=== PATIENT | male | born 1955 | race Caucasian/White ===

== ENCOUNTER 2018-09-24 11:27 | Emergency (ER) | payer BC, OTHER ==
[2018-09-24] MEDS ORDERED: Albuterol/Ipratropium 3.0-0.5 MG/3 ML Neb Soln ONE (11:32)
[2018-09-24] MEDS ORDERED: methylPREDNISolone Sodium Succinate 125 MG/2 ML SDV IVPUSH ONE (11:36)
[2018-09-24] MEDS ORDERED: Sodium Chloride 0.9% 1,000 ML IV ONE ×2 (11:41→12:18)
--- NOTE | 2018-09-24 11:42 | EDM.PDOC ---
<Gui Herring - Last Filed: 09/24/18 12:57> ED HPI GENERAL MEDICAL PROBLEM - General Chief Complaint: Respiratory Problem Stated Complaint: CHEST PAIN,ANXIETY Time Seen by Provider: 09/24/18 11:31 - History of Present Illness INITIAL COMMENTS - FREE TEXT/NARRATIVE: 63 y/o male presenting today with worsening shortness of breath. smokes 1-2 ppd. drinks 4-5 mixed drinks daily. No history of alcohol withdrawal seizures. States that his dyspnea has been going on and off for 1 month but now worse today. No chest pain, radiation to neck or arm. Denies any cardiac, pulmonary history. No medications. In the ER, he was started on Duonebs and placed on NS. Currently O2 sat of 95% on 6 L NC. Still wheezy after Duoneb treatment. - Related Data Allergies Allergy/AdvReac Type Severity Reaction Status Date / Time No Known Allergies Allergy Verified 09/24/18 11:39 Home Meds: Home Meds . [No Known Home Meds] 09/24/18 [History] ED ROS GENERAL - Review of Systems Review Of Systems: ROS reveals no pertinent complaints other than HPI. ED EXAM, GENERAL - Physical Exam Exam: See Below General Appearance: Alert, Anxious Head: Atraumatic Respiratory/Chest: Wheezing, Prolonged Expiration Cardiovascular: Regular Rate, Rhythm, No Edema GI/Abdominal: Normal Bowel Sounds, Soft, Non-Tender Extremities: Normal Inspection, Non-Tender, No Pedal Edema Neurological: Alert, Oriented Skin Exam: Warm, Dry Course - Vital Signs Text/Narrative:: Duonebs X2 with current O2 sats high 90's on 3L NC. Troponin of 0.26. Re-evaluated patient and he denies chest pain. Repeat EKG did not show any significant changes from initial. No ST elevation. Spoke with Dr. Cutler who reviewed EKG and recommended transfer to ER with admission to Medicine. He will be consulted. Administered Lovenox 100 mg IV once. Spoke with Dr. Martin at [facility] in [place] who accepted the patient. Last Recorded V/S: Last Vital Signs Temp 36.7 C 09/24/18 11:35 Pulse 115 H 09/24/18 11:35 Resp 26 H 09/24/18 11:35 BP 212/123 H 09/24/18 11:35 Pulse Ox 69 L 09/24/18 11:35 - Orders/Labs/Meds Orders: Active Orders 24 hr Category Date Time Status EKG Documentation Completion [RC] STAT Care 09/24/18 11:34 Active EKG Documentation Completion [RC] STAT Care 09/24/18 12:28 Active RT Aerosol Therapy [RC] ASDIRECTED Care 09/24/18 11:46 Active Sodium Chloride 0.9% [Normal Saline] 1,000 ml Med 09/24/18 13:15 Active IV ASDIRECTED Sodium Chloride 0.9% [Normal Saline] 1,000 ml Med 09/24/18 12:18 Active IV STAT Medication Orders Sodium Chloride (Normal Saline) 1,000 mls @ 999 mls/hr IV STAT ONE Stop: 09/24/18 13:18 Last Admin: 09/24/18 12:57 Dose: 999 mls/hr Sodium Chloride (Normal Saline) 1,000 mls @ 150 mls/hr IV ASDIRECTED [facility] Labs: Laboratory Tests 09/24/18 09/24/18 09/24/18 Range/Units 11:39 11:39 11:39 WBC 9.53 (4.0-11.0) K/uL RBC 5.73 (4.50-5.90) M/uL Hgb 18.5 H (13.0-17.0) g/dL Hct 56.8 H (38.0-50.0) % MCV 99.1 H (80.0-98.0) fL MCH 32.3 H (27.0-32.0) pg MCHC 32.6 (31.0-37.0) g/dL RDW Std Deviation 53.4 (28.0-62.0) fl RDW Coeff of Catrachita 15 (11.0-15.0) % Plt Count 204 (150-400) K/uL MPV 10.90 (7.40-12.00) fL Neut % (Auto) 57.2 (48.0-80.0) % Lymph % (Auto) 32.3 (16.0-40.0) % Gilliam % (Auto) 7.9 (0.0-15.0) % Eos % (Auto) 2.2 (0.0-7.0) % Baso % (Auto) 0.4 (0.0-1.5) % Neut # (Auto) 5.5 (1.4-5.7) K/uL Lymph # (Auto) 3.1 H (0.6-2.4) K/uL Gilliam # (Auto) 0.8 (0.0-0.8) K/uL Eos # (Auto) 0.2 (0.0-0.7) K/uL Baso # (Auto) 0.0 (0.0-0.1) K/uL Nucleated RBC % 0.0 /100WBC Nucleated RBCs # 0 K/uL Lactate 2.7 H (0.20-2.00) mmol/L Sodium 140 (136-148) mmol/L Potassium 4.1 (3.5-5.1) mmol/L Chloride 101 (98-107) mmol/L Carbon Dioxide 28.1 (21.0-32.0) mmol/L BUN 10 (7.0-18.0) mg/dL Creatinine 0.8 (0.8-1.3) mg/dL Est Cr Clr Drug Dosing 103.74 mL/min Estimated GFR (MDRD) > 60.0 ml/min Glucose 170 H (74-106) mg/dL Hemoglobin A1c (4.5-6.2) % Calcium 8.6 (8.5-10.1) mg/dL Magnesium (1.8-2.4) mg/dL Total Bilirubin 0.6 (0.2-1.0) mg/dL AST 27 (15-37) IU/L ALT 34 (14-63) IU/L Alkaline Phosphatase 119 H (46-116) U/L Troponin I 0.261 H* (0.000-0.056) ng/mL Total Protein 8.1 (6.4-8.2) g/dL Albumin 3.7 (3.4-5.0) g/dL Globulin 4.4 H (2.6-4.0) g/dL Albumin/Globulin Ratio 0.8 L (0.9-1.6) Ethyl Alcohol mg/dL 09/24/18 09/24/18 Range/Units 11:39 11:39 WBC (4.0-11.0) K/uL RBC (4.50-5.90) M/uL Hgb (13.0-17.0) g/dL Hct (38.0-50.0) % MCV (80.0-98.0) fL MCH (27.0-32.0) pg MCHC (31.0-37.0) g/dL RDW Std Deviation (28.0-62.0) fl RDW Coeff of Catrachita (11.0-15.0) % Plt Count (150-400) K/uL MPV (7.40-12.00) fL Neut % (Auto) (48.0-80.0) % Lymph % (Auto) (16.0-40.0) % Gilliam % (Auto) (0.0-15.0) % Eos % (Auto) (0.0-7.0) % Baso % (Auto) (0.0-1.5) % Neut # (Auto) (1.4-5.7) K/uL Lymph # (Auto) (0.6-2.4) K/uL Gilliam # (Auto) (0.0-0.8) K/uL Eos # (Auto) (0.0-0.7) K/uL Baso # (Auto) (0.0-0.1) K/uL Nucleated RBC % /100WBC Nucleated RBCs # K/uL Lactate (0.20-2.00) mmol/L Sodium (136-148) mmol/L Potassium (3.5-5.1) mmol/L Chloride (98-107) mmol/L Carbon Dioxide (21.0-32.0) mmol/L BUN (7.0-18.0) mg/dL Creatinine (0.8-1.3) mg/dL Est Cr Clr Drug Dosing mL/min Estimated GFR (MDRD) ml/min Glucose (74-106) mg/dL Hemoglobin A1c 6.3 H (4.5-6.2) % Calcium (8.5-10.1) mg/dL Magnesium 2.1 (1.8-2.4) mg/dL Total Bilirubin (0.2-1.0) mg/dL AST (15-37) IU/L ALT (14-63) IU/L Alkaline Phosphatase (46-116) U/L Troponin I (0.000-0.056) ng/mL Total Protein (6.4-8.2) g/dL Albumin (3.4-5.0) g/dL Globulin (2.6-4.0) g/dL Albumin/Globulin Ratio (0.9-1.6) Ethyl Alcohol <3 mg/dL Meds: Medications Generic Name Dose Route Start Last Admin Trade Name Freq PRN Reason Stop Dose Admin Sodium Chloride 1,000 mls @ 999 mls/hr 09/24/18 12:18 09/24/18 12:57 Normal Saline IV 09/24/18 13:18 999 mls/hr STAT ONE Administration Sodium Chloride 1,000 mls @ 150 mls/hr 09/24/18 13:15 Normal Saline IV ASDIRECTED SREEKANTH Discontinued Medications Generic Name Dose Route Start Last Admin Trade Name Hiramq PRN Reason Stop Dose Admin Albuterol/Ipratropium Confirm 09/24/18 11:32 09/24/18 11:39 Duoneb 3.0-0.5 Mg/3 Ml Administered 09/24/18 11:33 3 ml Dose Administration 3 ml .ROUTE .STK-MED ONE Albuterol/Ipratropium 3 ml 09/24/18 11:46 09/24/18 11:49 Duoneb 3.0-0.5 Mg/3 Ml NEB 09/24/18 11:47 3 ml ONETIME ONE Administration Aspirin 325 mg 09/24/18 11:50 09/24/18 12:10 Aspirin PO 09/24/18 11:51 Not Given ONETIME ONE Aspirin 324 mg 09/24/18 12:01 09/24/18 12:09 Aspirin PO 09/24/18 12:02 324 mg ONETIME ONE Administration Aspirin Confirm 09/24/18 12:01 09/24/18 12:14 Aspirin Administered 09/24/18 12:02 Not Given Dose 324 mg .ROUTE .STK-MED ONE Enoxaparin Sodium 100 mg 09/24/18 13:00 Lovenox SUBCUT 09/24/18 13:01 ONETIME ONE Sodium Chloride 1,000 mls @ 999 mls/hr 09/24/18 11:41 09/24/18 11:45 Normal Saline IV 09/24/18 12:41 999 mls/hr STAT ONE Administration Lorazepam 1 mg 09/24/18 12:00 09/24/18 12:10 Ativan IVPUSH 09/24/18 12:01 1 mg ONETIME ONE Administration Methylprednisolone Sodium Succinate 125 mg 09/24/18 11:36 09/24/18 11:47 Solu-Medrol IVPUSH 09/24/18 11:37 125 mg ONETIME ONE Administration Nitroglycerin 1 gm 09/24/18 11:51 09/24/18 12:07 Nitro-Bid 2% TOP 09/24/18 11:52 1 gm ONETIME ONE Administration Departure - Departure Time of Disposition: 13:01 Disposition: DC/Tfer to Acute Hospital 02 Condition: Fair Clinical Impression: NSTEMI (non-ST elevated myocardial infarction), COPD exacerbation - Discharge Information *PRESCRIPTION DRUG MONITORING PROGRAM REVIEWED*: Not Applicable *COPY OF PRESCRIPTION DRUG MONITORING REPORT IN PATIENT SALO: Not Applicable Referrals: PCP,None [Primary Care Provider] - Forms: ED Department Discharge Care Plan Goals: Dr. Cutler, Cardiology was contacted and recommended transfer to [facility]. Spoke with Dr. Martin at [facility] who accepted the patient. - My Orders Last 24 Hours: My Active Orders 09/24/18 11:46 RT Aerosol Therapy [RC] ASDIRECTED 09/24/18 12:18 Sodium Chloride 0.9% [Normal Saline] 1,000 ml IV STAT 09/24/18 12:28 EKG Documentation Completion [RC] STAT 09/24/18 13:15 Sodium Chloride 0.9% [Normal Saline] 1,000 ml IV ASDIRECTED - Assessment/Plan Last 24 Hours: My Active Orders 09/24/18 11:46 RT Aerosol Therapy [RC] ASDIRECTED 09/24/18 12:18 Sodium Chloride 0.9% [Normal Saline] 1,000 ml IV STAT 09/24/18 12:28 EKG Documentation Completion [RC] STAT 09/24/18 13:15 Sodium Chloride 0.9% [Normal Saline] 1,000 ml IV ASDIRECTED <Juliette Sanchez - Last Filed: 09/24/18 13:09> ED HPI GENERAL MEDICAL PROBLEM - History of Present Illness INITIAL COMMENTS - FREE TEXT/NARRATIVE: Dr. Sanchez dictating addendum note as I am the supervising physician on this case. Me and my personal interview that he does have on and off shortness of breath and wheezing and coughing for many months and he has a regular smoker. He said that today everything seemed to be worse and he really felt like he could not catch his breath. He does have a history of anxiety and panic disorder and this made him more anxious. He denies chest pain fevers chills or abdominal complaints but does say that he intermittently will cough up phlegm. He says he did not have a fever that he is aware of over the last 24 hours. The patient has no medications at home and has no pulmonary diagnosis. He comes in as nursing describes with an O2 sat of 69% and looking dusky but on oxygen immediately bounced up. On exam he has wheezing throughout all gunter and has abdominal work of breathing but is not breathless and is able to speak in full sentences. After the first DuoNeb we are able to titrate his oxygen to nasal cannula and he is maintaining his sats at 95%. We will give a second DuoNeb and proceed with workup as described. We will Plan on admission to the hospital after her workup is completed due to the patient's presentation and history/ symptomatology. 1155: Patient currently is satting 99% on 3 L and receiving his second DuoNeb. He says he still feels somewhat anxious so we will give him a small dose of Ativan. 1300: The patient continues to do well here, and his tachycardia has resolved and is feeling less anxious, and all testing results have been discussed with him. An EKG was repeated which shows no change from his earlier one and these EKGs were sent to the global marketing operations manager at [facility] in [place] who agrees with our care plan. (Dr Cutler @[phone]--he was faxed both EKGs to review) The patient is comfortable with transfer and we were able to obtain transportation from [facility] who is currently in route. Will advise them to treat the patient wheezing with duo nebs as needed in route and I will write for maintenance fluids as well as a dose of Lovenox. Dr Martin at [facility] has accepted the pt as well. Impressions; NSTEMI, significant bronchospasm/COPD with hypoxia improving Critical care time excluding procedures:31min ED ROS GENERAL - Review of Systems Review Of Systems: ROS reveals no pertinent complaints other than HPI. ED EXAM, GENERAL - Physical Exam Exam: See Below (See dictation) Course - Orders/Labs/Meds Labs: Laboratory Tests 09/24/18 09/24/18 09/24/18 Range/Units 11:39 11:39 11:39 WBC 9.53 (4.0-11.0) K/uL RBC 5.73 (4.50-5.90) M/uL Hgb 18.5 H (13.0-17.0) g/dL Hct 56.8 H (38.0-50.0) % MCV 99.1 H (80.0-98.0) fL MCH 32.3 H (27.0-32.0) pg MCHC 32.6 (31.0-37.0) g/dL RDW Std Deviation 53.4 (28.0-62.0) fl RDW Coeff of Catrachita 15 (11.0-15.0) % Plt Count 204 (150-400) K/uL MPV 10.90 (7.40-12.00) fL Neut % (Auto) 57.2 (48.0-80.0) % Lymph % (Auto) 32.3 (16.0-40.0) % Gilliam % (Auto) 7.9 (0.0-15.0) % Eos % (Auto) 2.2 (0.0-7.0) % Baso % (Auto) 0.4 (0.0-1.5) % Neut # (Auto) 5.5 (1.4-5.7) K/uL Lymph # (Auto) 3.1 H (0.6-2.4) K/uL Gilliam # (Auto) 0.8 (0.0-0.8) K/uL Eos # (Auto) 0.2 (0.0-0.7) K/uL Baso # (Auto) 0.0 (0.0-0.1) K/uL Nucleated RBC % 0.0 /100WBC Nucleated RBCs # 0 K/uL Lactate 2.7 H (0.20-2.00) mmol/L Sodium 140 (136-148) mmol/L Potassium 4.1 (3.5-5.1) mmol/L Chloride 101 (98-107) mmol/L Carbon Dioxide 28.1 (21.0-32.0) mmol/L BUN 10 (7.0-18.0) mg/dL Creatinine 0.8 (0.8-1.3) mg/dL Est Cr Clr Drug Dosing 103.74 mL/min Estimated GFR (MDRD) > 60.0 ml/min Glucose 170 H (74-106) mg/dL Hemoglobin A1c (4.5-6.2) % Calcium 8.6 (8.5-10.1) mg/dL Magnesium (1.8-2.4) mg/dL Total Bilirubin 0.6 (0.2-1.0) mg/dL AST 27 (15-37) IU/L ALT 34 (14-63) IU/L Alkaline Phosphatase 119 H (46-116) U/L Troponin I 0.261 H* (0.000-0.056) ng/mL Total Protein 8.1 (6.4-8.2) g/dL Albumin 3.7 (3.4-5.0) g/dL Globulin 4.4 H (2.6-4.0) g/dL Albumin/Globulin Ratio 0.8 L (0.9-1.6) Ethyl Alcohol mg/dL 09/24/18 09/24/18 Range/Units 11:39 11:39 WBC (4.0-11.0) K/uL RBC (4.50-5.90) M/uL Hgb (13.0-17.0) g/dL Hct (38.0-50.0) % MCV (80.0-98.0) fL MCH (27.0-32.0) pg MCHC (31.0-37.0) g/dL RDW Std Deviation (28.0-62.0) fl RDW Coeff of Catrachita (11.0-15.0) % Plt Count (150-400) K/uL MPV (7.40-12.00) fL Neut % (Auto) (48.0-80.0) % Lymph % (Auto) (16.0-40.0) % Gilliam % (Auto) (0.0-15.0) % Eos % (Auto) (0.0-7.0) % Baso % (Auto) (0.0-1.5) % Neut # (Auto) (1.4-5.7) K/uL Lymph # (Auto) (0.6-2.4) K/uL Gilliam # (Auto) (0.0-0.8) K/uL Eos # (Auto) (0.0-0.7) K/uL Baso # (Auto) (0.0-0.1) K/uL Nucleated RBC % /100WBC Nucleated RBCs # K/uL Lactate (0.20-2.00) mmol/L Sodium (136-148) mmol/L Potassium (3.5-5.1) mmol/L Chloride (98-107) mmol/L Carbon Dioxide (21.0-32.0) mmol/L BUN (7.0-18.0) mg/dL Creatinine (0.8-1.3) mg/dL Est Cr Clr Drug Dosing mL/min Estimated GFR (MDRD) ml/min Glucose (74-106) mg/dL Hemoglobin A1c 6.3 H (4.5-6.2) % Calcium (8.5-10.1) mg/dL Magnesium 2.1 (1.8-2.4) mg/dL Total Bilirubin (0.2-1.0) mg/dL AST (15-37) IU/L ALT (14-63) IU/L Alkaline Phosphatase (46-116) U/L Troponin I (0.000-0.056) ng/mL Total Protein (6.4-8.2) g/dL Albumin (3.4-5.0) g/dL Globulin (2.6-4.0) g/dL Albumin/Globulin Ratio (0.9-1.6) Ethyl Alcohol <3 mg/dL Departure - Departure Condition: Good
[2018-09-24] MEDS ORDERED: Albuterol/Ipratropium 3.0-0.5 MG/3 ML Neb Soln NEB ONE (11:46)
[2018-09-24] MEDS ORDERED: Aspirin 325 MG Tab PO ONE (11:50)
[2018-09-24] MEDS ORDERED: Nitroglycerin 2% Oint 1 GM UD Packet TOP ONE (11:51)
[2018-09-24] MEDS ORDERED: LORazepam 2 MG/ML SDV IVPUSH ONE (12:00)
[2018-09-24] MEDS ORDERED: Aspirin 81 MG Tab.Chew ONE (12:01)
[2018-09-24] MEDS ORDERED: Aspirin 81 MG Tab.Chew PO ONE (12:01)
[2018-09-24 12:24] LABS: CHLORIDE,CL 101 mmol/L (98-107); SODIUM,NA 140 mmol/L (136-148)
--- NOTE | 2018-09-24 12:25 | CR ---
INDICATION: Pain, shortness of breath. TECHNIQUE: Chest radiograph 1 view COMPARISON: None FINDINGS: Cardiovascular and mediastinum: The heart silhouette is normal in size and morphology. The mediastinum is normal in appearance. Lungs and pleural spaces: Both lungs are unremarkable in appearance. No sign of pleural effusion seen. No pneumothorax is identified. Bones and soft tissues: No significant findings. IMPRESSION: 1. No acute cardiopulmonary disease is seen. Dictated by Kentrell Kim MD @ 09/24/2018 12:23:09 PM Dictated by: Kentrell Kim MD @ 09/24/2018 12:23:18 (Electronically Signed)
[2018-09-24 12:51] LABS: HEMOGLOBIN A1C 6.3 % (4.5-6.2)
[2018-09-24] MEDS ORDERED: Enoxaparin 100 MG/1 ML Syringe SUBCUT ONE (13:00)
[2018-09-24] MEDS ORDERED: Sodium Chloride 0.9% 1,000 ML IV SCH (13:15)
== END 2018-09-24 14:16 ==
LOC: MW.ED 11:27
DX: I21.4 Non-ST elevation (NSTEMI) myocardial infarction (principal); J44.1 Chronic obstructive pulmonary disease with (acute) exacerbation; F17.210 Nicotine dependence, cigarettes, uncomplicated
CPT/HCPCS: 71045; 80053; 83036; 83605; 83735; 84484; 85025; 93005; 94640; 96361; 96372; 96374; 96375; 99285; A9270; G0480; J1650; J2060; J2930; J7040; J7620-GY

== ENCOUNTER 2018-10-07 11:42 | Emergency (ER) | payer BC ==
[2018-10-07] MEDS ORDERED: Ondansetron 4 MG/2 ML SDV IVPUSH ONE (11:44)
[2018-10-07] MEDS ORDERED: Sodium Chloride 0.9% 10 ML Syringe FLUSH PRN (11:44)
[2018-10-07] MEDS ORDERED: Sodium Chloride 0.9% 2.5 ML Syringe FLUSH PRN (11:44)
[2018-10-07] MEDS ORDERED: Nitroglycerin 2% Oint 1 GM UD Packet TOP ONE (11:44)
[2018-10-07] MEDS ORDERED: Morphine 2 MG/ML Syringe IVPUSH ONE (11:44)
[2018-10-07] MEDS ORDERED: Aspirin 81 MG Tab.Chew PO ONE (11:44)
[2018-10-07] MEDS ORDERED: Sodium Chloride 0.9% 1,000 ML IV SCH (11:45)
--- NOTE | 2018-10-07 11:59 | EDM.PDOC ---
ED HPI GENERAL MEDICAL PROBLEM - General Chief Complaint: Chest Pain Stated Complaint: CHEST PAIN HEADACHE Time Seen by Provider: 10/07/18 11:43 - History of Present Illness INITIAL COMMENTS - FREE TEXT/NARRATIVE: HISTORY AND PHYSICAL: History of present illness: Patient 63-year-old white male with history of COPD who was seen in the recent past on September 24 in transfer to [facility] for possible non-ST elevation myocardial infarction patient verbally gives a history that they felt this was an exacerbation of his COPD and that he did not have a myocardial infarction. He presents today with concern of chest pain chronic shortness of breath right lower extremity numbness. He states he is scheduled for cardiology follow-up as well as pulmonary function testing. There's been no associated palpitations nausea or vomiting. Review of systems: As per history of present illness and below otherwise all systems reviewed and negative. Past medical history: As per history of present illness and as reviewed below otherwise noncontributory. Surgical history: As per history of present illness and as reviewed below otherwise noncontributory. Social history: No reported history of drug or alcohol abuse. Family history: As per history of present illness and as reviewed below otherwise noncontributory. Physical exam: HEENT: Atraumatic, normocephalic, pupils reactive, negative for conjunctival pallor or scleral icterus, mucous membranes moist, throat clear, neck supple, nontender, trachea midline. Lungs: Clear to auscultation, breath sounds diminished equal bilaterally, chest nontender. Heart: S1S2, regular, negative for clicks, rubs, or JVD. Abdomen: Soft, nondistended, nontender. Negative for masses or hepatosplenomegaly. Negative for costovertebral tenderness. Pelvis: Stable nontender. Genitourinary: Deferred. Rectal: Deferred. Extremities: Atraumatic, negative for cords or calf pain. Neurovascular unremarkable. Neuro: Awake, alert, oriented. Cranial nerves II through XII unremarkable. Cerebellum unremarkable. Motor and sensory unremarkable throughout. Exam nonfocal. Diagnostics: CBC CMP troponin PT/INR chest x-ray EKG CT brain Therapeutics: IV O2 monitor morphine sulfate 2 mg IV nitro paste 1 inch to chest wall aspirin 324 mg by mouth Zofran 4 mg calcium chloride one amp IV sodium bicarbonate one amp IV D50 1 amp IV regular insulin 10 units Impression: #1 chest pain #2 COPD #3 right lower extremity paresthesia #4 hyperkalemia Definitive disposition and diagnosis as appropriate pending reevaluation and review of above. Chest Pain Score (Numeric/FACES): 4 - Related Data Allergies Allergy/AdvReac Type Severity Reaction Status Date / Time No Known Allergies Allergy Verified 10/07/18 11:51 Home Meds: Home Meds . [No Known Home Meds] 09/24/18 [History] Past Medical History - Past Health History Medical/Surgical History: Denies Medical/Surgical History Cardiovascular History: Reports: Hypertension - Infectious Disease History Infectious Disease History: Reports: Other (See Below) Other Infectious Disease History: unable to recall specific occurrences - Past Surgical History Other Musculoskeletal Surgeries/Procedures:: left wrist surgery Social & Family History - Family History Family Medical History: Noncontributory - Tobacco Use Smoking Status *Q: Former Smoker Used Tobacco, but Quit: Yes Month/Year Tobacco Last Used: 2018 - Caffeine Use Caffeine Use: Reports: Coffee - Recreational Drug Use Recreational Drug Use: No ED ROS GENERAL - Review of Systems Review Of Systems: ROS reveals no pertinent complaints other than HPI. ED EXAM, GENERAL - Physical Exam Exam: See Below (Dictation) Course - Vital Signs Last Recorded V/S: Last Vital Signs Temp 35.6 C 10/07/18 11:51 Pulse 68 10/07/18 12:00 Resp 17 10/07/18 11:51 BP 104/64 10/07/18 12:00 Pulse Ox 96 10/07/18 11:51 - Orders/Labs/Meds Orders: Active Orders 24 hr Category Date Time Status Cardiac Monitoring [RC] . DIRECTED Care 10/07/18 11:44 Active EKG Documentation Completion [RC] STAT Care 10/07/18 11:44 Active Oxygen Therapy, ED [RC] ASDIRECTED Care 10/07/18 11:44 Active Pulse Oximetry [RC] ASDIRECTED Care 10/07/18 11:44 Active B-TYPE NATRIURETIC PEPTIDE,BNP [CHEM] Stat Lab 10/07/18 11:56 Received Sodium Chloride 0.9% [Normal Saline] 1,000 ml Med 10/07/18 11:45 Active IV STAT Sodium Chloride 0.9% [Saline Flush] Med 10/07/18 11:44 Active 10 ml FLUSH ASDIRECTED PRN Sodium Chloride 0.9% [Saline Flush] Med 10/07/18 11:44 Active 2.5 ml FLUSH ASDIRECTED PRN Saline Lock Insert [OM.PC] Stat Oth 10/07/18 11:44 Ordered Medication Orders Sodium Chloride (Normal Saline) 1,000 mls @ 125 mls/hr IV STAT SREEKANTH Last Admin: 10/07/18 12:13 Dose: 125 mls/hr Sodium Chloride (Saline Flush) 10 ml FLUSH ASDIRECTED PRN PRN Reason: Keep Vein Open Sodium Chloride (Saline Flush) 2.5 ml FLUSH ASDIRECTED PRN PRN Reason: Keep Vein Open Labs: Laboratory Tests 10/07/18 10/07/18 10/07/18 Range/Units 11:56 11:56 11:56 WBC 15.56 H (4.0-11.0) K/uL RBC 5.63 (4.50-5.90) M/uL Hgb 18.1 H (13.0-17.0) g/dL Hct 54.5 H (38.0-50.0) % MCV 96.8 (80.0-98.0) fL MCH 32.1 H (27.0-32.0) pg MCHC 33.2 (31.0-37.0) g/dL RDW Std Deviation 50.7 (28.0-62.0) fl RDW Coeff of Catrachita 14 (11.0-15.0) % Plt Count 251 (150-400) K/uL MPV 11.10 (7.40-12.00) fL Neut % (Auto) 74.1 (48.0-80.0) % Lymph % (Auto) 17.0 (16.0-40.0) % Travis % (Auto) 7.9 (0.0-15.0) % Eos % (Auto) 0.8 (0.0-7.0) % Baso % (Auto) 0.2 (0.0-1.5) % Neut # (Auto) 11.5 H (1.4-5.7) K/uL Lymph # (Auto) 2.7 H (0.6-2.4) K/uL Travis # (Auto) 1.2 H (0.0-0.8) K/uL Eos # (Auto) 0.1 (0.0-0.7) K/uL Baso # (Auto) 0.0 (0.0-0.1) K/uL Nucleated RBC % 0.0 /100WBC Nucleated RBCs # 0 K/uL INR 1.09 Sodium 136 (136-148) mmol/L Potassium 6.7 H (3.5-5.1) mmol/L Chloride 100 (98-107) mmol/L Carbon Dioxide 27.8 (21.0-32.0) mmol/L BUN 24 H (7.0-18.0) mg/dL Creatinine 1.7 H (0.8-1.3) mg/dL Est Cr Clr Drug Dosing 48.82 mL/min Estimated GFR (MDRD) 40.9 ml/min Glucose 130 H (74-106) mg/dL Calcium 9.3 (8.5-10.1) mg/dL Total Bilirubin 0.8 (0.2-1.0) mg/dL AST 21 (15-37) IU/L ALT 57 (14-63) IU/L Alkaline Phosphatase 94 (46-116) U/L Troponin I < 0.050 (0.000-0.056) ng/mL Total Protein 7.4 (6.4-8.2) g/dL Albumin 3.4 (3.4-5.0) g/dL Globulin 4.0 (2.6-4.0) g/dL Albumin/Globulin Ratio 0.9 (0.9-1.6) Meds: Medications Generic Name Dose Route Start Last Admin Trade Name Gillian PRN Reason Stop Dose Admin Sodium Chloride 1,000 mls @ 125 mls/hr 10/07/18 11:45 10/07/18 12:13 Normal Saline IV 125 mls/hr STAT SREEKANTH Administration Sodium Chloride 10 ml 10/07/18 11:44 Saline Flush FLUSH ASDIRECTED PRN Keep Vein Open Sodium Chloride 2.5 ml 10/07/18 11:44 Saline Flush FLUSH ASDIRECTED PRN Keep Vein Open Discontinued Medications Generic Name Dose Route Start Last Admin Trade Name Freq PRN Reason Stop Dose Admin Aspirin 324 mg 10/07/18 11:44 10/07/18 11:57 Aspirin PO 10/07/18 11:45 324 mg ONETIME ONE Administration Calcium Chloride 1 gm 10/07/18 12:55 10/07/18 13:04 Calcium Chloride 10% IVPUSH 10/07/18 12:56 1 gm ONETIME ONE Administration Dextrose/Water 50 ml 10/07/18 12:55 10/07/18 13:03 Dextrose 50% In Water IVPUSH 10/07/18 12:56 50 ml ONETIME ONE Administration Insulin Human Regular 10 unit 10/07/18 12:55 10/07/18 13:04 Novolin R IVPUSH 10/07/18 12:56 10 unit ONETIME ONE Administration Protocol Morphine Sulfate 2 mg 10/07/18 11:44 10/07/18 11:58 Morphine IVPUSH 10/07/18 11:45 2 mg ONETIME ONE Administration Nitroglycerin 1 gm 10/07/18 11:44 10/07/18 11:58 Nitro-Bid 2% TOP 10/07/18 11:45 1 gm ONETIME ONE Administration Ondansetron HCl 4 mg 10/07/18 11:44 10/07/18 11:58 Zofran IVPUSH 10/07/18 11:45 4 mg ONETIME ONE Administration Sodium Bicarbonate 50 meq 10/07/18 12:55 10/07/18 13:03 Sodium Bicarbonate 8.4% IVPUSH 10/07/18 12:56 50 meq ONETIME ONE Administration Departure - Departure Time of Disposition: 13:09 Disposition: DC/Tfer to Acute Hospital 02 Condition: Serious Clinical Impression: Chest pain, COPD (chronic obstructive pulmonary disease), Hyperkalemia, Paresthesia - Discharge Information Forms: ED Department Discharge - My Orders Last 24 Hours: My Active Orders 10/07/18 11:44 Cardiac Monitoring [RC] . DIRECTED EKG Documentation Completion [RC] STAT Oxygen Therapy, ED [RC] ASDIRECTED Pulse Oximetry [RC] ASDIRECTED Sodium Chloride 0.9% [Saline Flush] 10 ml FLUSH ASDIRECTED PRN Sodium Chloride 0.9% [Saline Flush] 2.5 ml FLUSH ASDIRECTED PRN Saline Lock Insert [OM.PC] Stat 10/07/18 11:45 Sodium Chloride 0.9% [Normal Saline] 1,000 ml IV STAT 10/07/18 11:56 B-TYPE NATRIURETIC PEPTIDE,BNP [CHEM] Stat - Assessment/Plan Last 24 Hours: My Active Orders 10/07/18 11:44 Cardiac Monitoring [RC] . DIRECTED EKG Documentation Completion [RC] STAT Oxygen Therapy, ED [RC] ASDIRECTED Pulse Oximetry [RC] ASDIRECTED Sodium Chloride 0.9% [Saline Flush] 10 ml FLUSH ASDIRECTED PRN Sodium Chloride 0.9% [Saline Flush] 2.5 ml FLUSH ASDIRECTED PRN Saline Lock Insert [OM.PC] Stat 10/07/18 11:45 Sodium Chloride 0.9% [Normal Saline] 1,000 ml IV STAT 10/07/18 11:56 B-TYPE NATRIURETIC PEPTIDE,BNP [CHEM] Stat
--- NOTE | 2018-10-07 12:40 | CR ---
EXAMINATION: Portable chest radiograph. HISTORY: Shortness of breath. FINDINGS: The trachea is midline. The cardiomediastinal silhouette is within normal limits. No pulmonary infiltrates, effusions or pneumothorax. Osseous structures appear unremarkable. IMPRESSION: No acute cardiopulmonary process.
[2018-10-07 12:48] LABS: CHLORIDE,CL 100 mmol/L (98-107); SODIUM,NA 136 mmol/L (136-148)
--- NOTE | 2018-10-07 12:48 | CT ---
EXAMINATION: Non contrast CT head. Coronal and sagittal reformats. HISTORY: Pain FINDINGS: No evidence of intra or extra axial hemorrhage, mass, midline shift, hydrocephalus or edema. No hypoattenuation changes in the major vascular territories to suggest acute infarct. No abnormal intracranial calcifications are detected. No evidence of substantial vascular calcifications. Paranasal sinuses and mastoid air cells are well aerated without substantial findings. Pituitary fossa appears unremarkable. Orbits and globes are symmetric. Calvarium is intact. No evidence of skull fracture. IMPRESSION: No acute intracranial findings.
[2018-10-07] MEDS ORDERED: 50% Dextrose in Water 50 ML Syringe IVPUSH ONE (12:55)
[2018-10-07] MEDS ORDERED: Sodium Bicarbonate 8.4% 50 MEQ/50 ML Syringe IVPUSH ONE (12:55)
[2018-10-07] MEDS ORDERED: Calcium Chloride 10% 1 GM/10 ML Syringe IVPUSH ONE (12:55)
[2018-10-07] MEDS ORDERED: Insulin Regular, Human 100 Units/ML 10 ML Vial IVPUSH ONE (12:55)
[2018-10-07] MEDS ORDERED: Sodium Bicarbonate 8.4% 50 MEQ/50 ML Syringe ONE (13:25)
== END 2018-10-07 14:45 ==
LOC: MW.ED 11:42
DX: R07.9 Chest pain, unspecified (principal); J44.9 Chronic obstructive pulmonary disease, unspecified; R20.2 Paresthesia of skin; E87.5 Hyperkalemia; I10 Essential (primary) hypertension; Z87.891 Personal history of nicotine dependence
CPT/HCPCS: 36415; 70450; 71045; 80053; 83880; 84132; 84484; 85025; 85610; 93005; 96361; 96374; 96375; 99285; A9270; J2270; J2405; J7040; J7060; J1815-GY

== ENCOUNTER 2019-04-17 17:50 | Emergency (ER) | payer BC ==
[2019-04-17] MEDS ORDERED: Lidocaine 2% Viscous Solution 15 ML Cup PO ONE (18:54)
[2019-04-17] MEDS ORDERED: Benzocaine 20% Topical Spray UD MUCMEM ONE (18:54)
--- NOTE | 2019-04-17 18:58 | EDM.PDOC ---
ED HPI GENERAL MEDICAL PROBLEM - General Chief Complaint: General Stated Complaint: TOOTHACHE Time Seen by Provider: 04/17/19 18:44 Source of Information: Reports: Patient History Limitations: Reports: No Limitations - History of Present Illness INITIAL COMMENTS - FREE TEXT/NARRATIVE: HISTORY AND PHYSICAL: History of present illness: Patient is a 64-year-old male who presents to the ED today with concern of dental pain over the past 2 days. Patient states he has bad teeth in general and is in the process of getting dentures and saving up for this. Patient states he needs to have all of his teeth pulled and to be fitted for dentures. Patient states he has been able to eat and drink but does have pain with chewing on the right side. Patient denies any other symptoms or concerns. Patient denies fever, chills, chest pain, shortness of breath, or cough. Denies headache, neck stiff ness, change in vision, syncope, or near syncope. Denies nausea, vomiting, abdominal pain, diarrhea, constipation, or dysuria. Has not noted any blood in urine or stool. Patient has been eating and drinking appropriately. Review of systems: As per history of present illness and below otherwise all systems reviewed and negative. Past medical history: As per history of present illness and as reviewed below otherwise noncontributory. Surgical history: As per history of present illness and as reviewed below otherwise noncontributory. Social history: See social history for further information Family history: As per history of present illness and as reviewed below otherwise noncontributory. Physical exam: General: Patient is alert, oriented, and in no acute distress. Patient sitting comfortably on exam table. HEENT: Atraumatic, normocephalic, pupils equal and reactive bilaterally, negative for conjunctival pallor or scleral icterus, mucous membranes moist, TMs normal bilaterally, throat clear, neck supple, nontender, trachea midline. No drooling or trismus noted. No meningeal signs. No hot potato voice noted. Generalized very poor dentition. There are multiple teeth missing sporadically throughout mouth. Remainder of teeth are severely eroded. Tooth #5-6 are severely eroded and painful to palpation with edema of the gumline. Lungs: Clear to auscultation, breath sounds equal bilaterally, chest nontender. Heart: S1S2, regular rate and rhythm without overt murmur Abdomen: Soft, nondistended, nontender. Negative for masses or hepatosplenomegaly. Negative for costovertebral tenderness. Pelvis: Stable nontender. Genitourinary: Deferred. Rectal: Deferred. Skin: Intact, warm, dry. No lesions or rashes noted. Extremities: Atraumatic, negative for cords or calf pain. Neurovascular unremarkable. Neuro: Awake, alert, oriented. Cranial nerves II through XII unremarkable. Cerebellum unremarkable. Motor and sensory unremarkable throughout. Exam nonfocal. Notes: Discussed importance for follow-up with a dentist. Voices understanding and is agreeable to plan of care. Denies any further questions or concerns at this time. Diagnostics: None Therapeutics: Dental balls Prescription: Clindamycin Impression: Dental abscess Generalized poor dentition Plan: 1. Please take medication as prescribed. 2. Tylenol and/or ibuprofen as directed and as needed for pain management. 3. "Tooth Balls" have been given to you; apply along the gumline every 2-3 hours as needed. Do not swallow these; external use only. 4. Follow-up with a dentist for definitive care. Return to the ED as needed and as discussed. Definitive disposition and diagnosis as appropriate pending reevaluation and review of above. right dental pain Pain Score (Numeric/FACES): 5 - Related Data Allergies Allergy/AdvReac Type Severity Reaction Status Date / Time No Known Allergies Allergy Verified 10/07/18 11:51 Home Meds: Home Meds Clindamycin HCl 300 mg PO TID 10 Days #30 capsule 04/17/19 [Rx] Fluticasone/Vilanterol [Breo Ellipta 100-25 MCG Inhalation Kit] 04/17/19 [ History] NIFEdipine [Nifedipine ER] 04/17/19 [History] atorvaSTATin Calcium [Atorvastatin Calcium] 04/17/19 [History] carvediloL [Carvedilol] 04/17/19 [History] lisinopriL [Lisinopril] 04/17/19 [History] Past Medical History - Past Health History Medical/Surgical History: Denies Medical/Surgical History Cardiovascular History: Reports: Hypertension Respiratory History: Reports: COPD - Infectious Disease History Infectious Disease History: Reports: Chicken Pox, Measles, Mumps Other Infectious Disease History: unable to recall specific occurrences - Past Surgical History Other Musculoskeletal Surgeries/Procedures:: left wrist surgery Social & Family History - Family History Family Medical History: Noncontributory - Tobacco Use Smoking Status *Q: Former Smoker Used Tobacco, but Quit: Yes Month/Year Tobacco Last Used: 09/2018 - Caffeine Use Caffeine Use: Reports: Coffee - Recreational Drug Use Recreational Drug Use: No ED ROS GENERAL - Review of Systems Review Of Systems: Comprehensive ROS is negative, except as noted in HPI. ED EXAM, GENERAL - Physical Exam Exam: See Below (see dictation) Course - Vital Signs Last Recorded V/S: Last Vital Signs Temp 98 F 04/17/19 18:15 Pulse 75 04/17/19 18:15 Resp 20 04/17/19 18:15 BP 163/77 H 04/17/19 18:15 Pulse Ox 95 04/17/19 18:15 - Orders/Labs/Meds Orders: Active Orders 24 hr Category Date Time Status Benzocaine [Hurricaine One 20%] Med 04/17/19 18:54 Once 2 each MUCMEM ONETIME ONE Lidocaine 2% [Xylocaine 2% Viscous] Med 04/17/19 18:54 Once 15 ml PO ONETIME ONE Medication Orders Benzocaine (Hurricaine One 20%) 2 each MUCMEM ONETIME ONE Stop: 04/17/19 18:55 Lidocaine HCl (Xylocaine 2% Viscous) 15 ml PO ONETIME ONE Stop: 04/17/19 18:55 Meds: Medications Generic Name Dose Route Start Last Admin Trade Name Gillian PRN Reason Stop Dose Admin Benzocaine 2 each 04/17/19 18:54 Hurricaine One 20% MUCMEM 04/17/19 18:55 ONETIME ONE Lidocaine HCl 15 ml 04/17/19 18:54 Xylocaine 2% Viscous PO 04/17/19 18:55 ONETIME ONE Departure - Departure Time of Disposition: 18:57 Disposition: Home, Self-Care 01 Clinical Impression: Dental abscess, Poor dentition - Discharge Information Prescriptions: Clindamycin HCl 300 mg PO TID 10 Days #30 capsule Referrals: Oseas Venegas MD [Primary Care Provider] - Additional Instructions: The following information is given to patients seen in the emergency department who are being discharged to home. This information is to outline your options for follow-up care. We provide all patients seen in our emergency department with a follow-up referral. The need for follow-up, as well as the timing and circumstances, are variable depending upon the specifics of your emergency department visit. If you don't have a primary care physician on staff, we will provide you with a referral. We always advise you to contact your personal physician following an emergency department visit to inform them of the circumstance of the visit and for follow-up with them and/or the need for any referrals to a consulting specialist. The emergency department will also refer you to a specialist when appropriate. This referral assures that you have the opportunity for follow-up care with a specialist. All of these measure are taken in an effort to provide you with optimal care, which includes your follow-up. Under all circumstances we always encourage you to contact your private physician who remains a resource for coordinating your care. When calling for follow-up care, please make the office aware that this follow-up is from your recent emergency room visit. If for any reason you are refused follow-up, please contact the [facility] Emergency Department at and asked to speak to the emergency department charge nurse. [facility] [address] [place] [id number] [place] [address] 1. Please take medication as prescribed. 2. Tylenol and/or ibuprofen as directed and as needed for pain management. 3. "Tooth Balls" have been given to you; apply along the gumline every 2-3 hours as needed. Do not swallow these; external use only. 4. Follow-up with a dentist for definitive care. Return to the ED as needed and as discussed. Sepsis Event Note - Evaluation Sepsis Screening Result: No Definite Risk - Focused Exam Vital Signs: Vital Signs Temp Pulse Resp BP Pulse Ox 04/17/19 18:15 98 F 75 20 163/77 H 95 Date Exam was Performed: 04/17/19 Time Exam was Performed: 18:54 - My Orders Last 24 Hours: My Active Orders 04/17/19 18:54 Benzocaine [Hurricaine One 20%] 2 each MUCMEM ONETIME ONE Lidocaine 2% [Xylocaine 2% Viscous] 15 ml PO ONETIME ONE - Assessment/Plan Last 24 Hours: My Active Orders 04/17/19 18:54 Benzocaine [Hurricaine One 20%] 2 each MUCMEM ONETIME ONE Lidocaine 2% [Xylocaine 2% Viscous] 15 ml PO ONETIME ONE
== END 2019-04-17 19:22 | disposition home or self-care (01) ==
LOC: MW.ED 17:50
DX: K04.7 Periapical abscess without sinus (principal); K00.7 Teething syndrome; I10 Essential (primary) hypertension; Z79.899 Other long term (current) drug therapy; J44.9 Chronic obstructive pulmonary disease, unspecified; Z87.891 Personal history of nicotine dependence
CPT/HCPCS: 99282; A9270; 99283

== ENCOUNTER 2020-06-18 09:59 | Emergency (ER) | payer BC ==
--- NOTE | 2020-06-18 10:23 | EDM.PDOC ---
ED HPI GENERAL MEDICAL PROBLEM - General Chief Complaint: Genitourinary Problem Stated Complaint: BURNING DURING URINATION Time Seen by Provider: 06/18/20 10:04 - History of Present Illness INITIAL COMMENTS - FREE TEXT/NARRATIVE: 65-year-old male with history of vascular disease presenting with 1 week of dysuria and increased urinary frequency. No fevers no chills no flank pain no back pain. Patient has tried Pyridium for the last couple days with minimal relief. Patient feels like he may not be fully emptying his bladder. 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 He denies pain with defecation. He denies testicular pain. He is not sexually active. penis Pain Score (Numeric/FACES): 3 - Related Data Allergies Allergy/AdvReac Type Severity Reaction Status Date / Time No Known Allergies Allergy Verified 10/07/18 11:51 Home Meds: Home Meds Aspirin 1 tab PO DAILY 06/18/20 [History] Clopidogrel Bisulfate [Plavix] 75 mg PO DAILY 06/18/20 [History] Furosemide 40 mg PO DAILY 06/18/20 [History] Iron 65 mg PO DAILY 06/18/20 [History] Nitroglycerin 1 tab PO ASDIRECTED PRN 06/18/20 [History] atorvaSTATin [Lipitor] 40 mg PO DAILY 06/18/20 [History] carvediloL [Carvedilol] 1 tab PO BID 06/18/20 [History] cephALEXin [Keflex] 500 mg PO Q6H 7 Days #28 cap 06/18/20 [Rx] Past Medical History - Past Health History Medical/Surgical History: Denies Medical/Surgical History Cardiovascular History: Reports: Hypertension Respiratory History: Reports: COPD - Infectious Disease History Infectious Disease History: Reports: Chicken Pox, Measles, Mumps Other Infectious Disease History: unable to recall specific occurrences - Past Surgical History Other Musculoskeletal Surgeries/Procedures:: left wrist surgery Social & Family History - Family History Family Medical History: No Pertinent Family History - Caffeine Use Caffeine Use: Reports: Coffee ED ROS GENERAL - Review of Systems Review Of Systems: See Below Free Text/Narrative/Comment: General: No fever. Eyes: No vision problems. Respiratory: No shortness of breath. Cardiac: No chest pain. Gastrointestinal: No nausea, vomiting or abdominal pain. Urinary: No dysuria. Musculoskeletal: No myalgias/arthralgias. Neurologic: No headache. ED EXAM, GENERAL - Physical Exam Exam: See Below Free Text/Narrative:: General Appearance: No acute distress, appears comfortable Skin: No rash HEENT: Normocephalic/atraumatic, sclera anicteric, mucous membranes moist Neck: Normal range of motion Chest and Lungs: Bilateral breath sounds, clear to auscultation Cardiovascular: Regular rate and rhythm, no murmur Abdomen: Soft, non-tender : Normal external male genitalia bilaterally descended testes without tenderness or mass or swelling no discharge from meatus no inflammation of the glans Musculoskeletal: No edema or tenderness Neurologic: Awake, alert, no obvious deficits, moving all extremities Psychiatric: Appropriate, cooperative Course - Vital Signs Last Recorded V/S: Last Vital Signs Temp 97.8 F 06/18/20 10:05 Pulse 68 06/18/20 10:05 Resp 16 06/18/20 10:05 BP 174/84 H 06/18/20 10:05 Pulse Ox 95 06/18/20 10:05 - Orders/Labs/Meds Labs: Laboratory Tests 06/18/20 Range/Units 10:23 Urine Color YELLOW Urine Appearance SLT CLOUDY Urine pH 6.0 (5.0-8.0) Ur Specific [place] 1.010 (1.001-1.035) Urine Protein 30 H (NEGATIVE) mg/dL Urine Glucose (UA) NEGATIVE (NEGATIVE) mg/dL Urine Ketones NEGATIVE (NEGATIVE) mg/dL Urine Occult Blood TRACE-INTACT H (NEGATIVE) Urine Nitrite POSITIVE H (NEGATIVE) Urine Bilirubin NEGATIVE (NEGATIVE) Urine Urobilinogen 2.0 H (<2.0) EU/dL Ur Leukocyte Esterase LARGE H (NEGATIVE) Urine RBC 0-4 (0-2/HPF) Urine WBC TO NUMEROUS TO COUNT H (0-5/HPF) Ur Epithelial Cells RARE (NONE-FEW) Urine Bacteria 3+ H (NEGATIVE) Departure - Departure Time of Disposition: 10:55 Disposition: Home, Self-Care 01 Condition: Good Clinical Impression: UTI, Urinary tract infectious disease - Discharge Information *PRESCRIPTION DRUG MONITORING PROGRAM REVIEWED*: Not Applicable *COPY OF PRESCRIPTION DRUG MONITORING REPORT IN PATIENT SALO: Not Applicable Prescriptions: cephALEXin [Keflex] 500 mg PO Q6H 7 Days #28 cap Instructions: Urinary Tract Infection, Adult Referrals: Alexander Cortez MD [Primary Care Provider] - 2 Weeks Hank Delgado MD [Physician] - (as directed by your primary doctor) Forms: ED Department Discharge Additional Instructions: You should start to feel better over the next couple days. However, it is important you take the entire course of antibiotics. Today in the emergency room you had a little over 200 mL left in your bladder after you voided. This could simply be due to the infection. However, it is important that you follow- up with your primary care doctor to ensure that this problem resolves. If you continue to have issues with any type of urinary retention would likely benefit from seeing the urologist. Sepsis Event Note (ED) - Evaluation Sepsis Screening Result: No Definite Risk - Focused Exam Vital Signs: Vital Signs Temp Pulse Resp BP Pulse Ox 06/18/20 10:05 97.8 F 68 16 174/84 H 95 - Assessment/Plan Assessment:: 65-year-old male presenting with signs and symptoms most consistent with urinary tract infection possibly with some degree of urinary retention UA and PVR pending. No abdominal findings no severe back pain nothing to suggest cord compression or cauda equina no signs of systemic illness. 1055: Patient with clear UTI on urinalysis. Will prescribe 7 days of Keflex. Return precautions discussed and understood. Patient agrees to follow-up with his primary care provider regarding the potential for ongoing urinary retention as he did have over 200 mL on his PVR. However, given the infection this may not be his normal state.
== END 2020-06-18 11:10 | disposition home or self-care (01) ==
LOC: MW.ED 09:59
DX: N39.0 Urinary tract infection, site not specified (principal); I10 Essential (primary) hypertension; J44.9 Chronic obstructive pulmonary disease, unspecified; Z79.02 Long term (current) use of antithrombotics/antiplatelets; Z79.82 Long term (current) use of aspirin; Z79.899 Other long term (current) drug therapy
CPT/HCPCS: 81001; 99283

== ENCOUNTER 2020-06-20 01:00 | Emergency (ER) | payer BC ==
[2020-06-20] MEDS ORDERED: Ondansetron 4 MG/2 ML SDV IVPUSH ONE (01:14)
[2020-06-20] MEDS ORDERED: Sodium Chloride 0.9% 2.5 ML Syringe FLUSH PRN (01:14)
[2020-06-20] MEDS ORDERED: Sodium Chloride 0.9% 1,000 ML IV ONE (01:14)
[2020-06-20] MEDS ORDERED: cefTRIAXone 1 GM in Premix Bag 1 BAG IV ONE (01:14)
[2020-06-20] MEDS ORDERED: fentaNYL 50 MCG/ML SDV IVPUSH ONE (01:14)
[2020-06-20] MEDS ORDERED: Sodium Chloride 0.9% 10 ML Syringe FLUSH PRN (01:14)
[2020-06-20 01:53] LABS: BLOOD UREA NITROGEN,BUN 18 mg/dL (7.0-18.0); CARBON DIOXIDE,CO2 23.8 mmol/L (21.0-32.0); CHLORIDE,CL 101 mmol/L (98-107); GLUCOSE RANDOM 139 mg/dL (74-106); POTASSIUM,K 3.7 mmol/L (3.5-5.1); SODIUM,NA 137 mmol/L (136-148)
[2020-06-20] MEDS ORDERED: Phenazopyridine 200 MG Tab PO ONE (02:23)
--- NOTE | 2020-06-20 02:29 | CT ---
Indication: Abdominal pain Technique: Nonenhanced axial CT imaging through the abdomen and pelvis. Sagittal and coronal reconstructions are provided. Comparison: None Findings: There is unremarkable noncontrast appearance of the liver, gallbladder, spleen, pancreas, and adrenal glands. There is a 2 cm hypoattenuating lesion arising exophytically from the lower pole of the left kidney. The kidneys are otherwise unremarkable. There is no abdominal lymphadenopathy. There is atherosclerosis of the abdominal aorta without underlying aneurysm. 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 The stomach and duodenum are unremarkable. There are no abnormally dilated small bowel loops. The appendix is noninflamed. There is no colonic wall thickening. No inflammatory changes are demonstrated in the mesentery. The urinary bladder is distended, measuring 12 x 11 x 17 cm (approximate volume of 1100 mL). There is mild fat stranding surrounding the urinary bladder. The prostate gland and seminal vesicles are unremarkable. A few nonspecific prominent lymph nodes are noted in the external iliac chains. Degenerative changes are noted in the spine. The included lung bases are clear. Impression: 1. Markedly distended urinary bladder, concerning for urinary retention. Correlate with postvoid residual. 2. A 2 cm hypoattenuating lesion arising exophytically from the lower pole the left kidney. Consider nonemergent follow-up ultrasound to confirm cystic nature. Please note that all CT scans at this facility use dose modulation, iterative reconstruction, and/or weight-based dosing when appropriate to reduce radiation dose to as low as reasonably achievable. Dictated by Bhaskar Robert MD @ Jun 20 2020 2:20AM Signed by Dr. Bhaskar Robert @ Jun 20 2020 2:29AM
--- NOTE | 2020-06-20 02:53 | EDM.PDOC ---
ED HPI GENERAL MEDICAL PROBLEM - General Chief Complaint: Genitourinary Problem Stated Complaint: sick Time Seen by Provider: 06/20/20 01:14 - History of Present Illness INITIAL COMMENTS - FREE TEXT/NARRATIVE: HISTORY AND PHYSICAL: History of present illness: This is a 65-year-old gentleman with a history significant for non-STEMI, diabetes, who presents to the ER today secondary to dysuria with pain at the tip of his penis and bilateral flank pain. Patient was seen and evaluated in the ER here 2 days ago and was diagnosed with a urinary tract infection. Patient was started on Keflex and reports he has a received any improvement of his symptoms since starting the Keflex. Patient reports that his symptoms of dysuria started approximately 5 days ago. Patient denies any recent fevers, shakes, chills, nausea, vomiting, diarrhea,, melena, bright red blood per rectum. Patient reports he is tolerating p.o. solids and liquids well. Patient denies any history of urinary obstruction in the past. Review of systems: As per history of present illness and below otherwise all systems reviewed and negative. Past medical history: As per history of present illness and as reviewed below otherwise noncontributory. Surgical history: As per history of present illness and as reviewed below otherwise noncontributory. Social history: No reported history of drug or alcohol abuse. Family history: As per history of present illness and as reviewed below otherwise noncontributory. Physical exam: This patient was seen and evaluated during the 2019 SARS-CoV-2 novel coronavirus pandemic period. Community viral transmission is ongoing at time of this encounter and the emergency department is operating under pandemic response procedures. Constitutional: Patient is oriented to person, place, and time. Appears well- developed and well-nourished. No distress. HEENT: Moist mucous membranes Head: Normocephalic and atraumatic Eyes: Right eye exhibits no discharge. Left eye exhibits no discharge. No scleral icterus Neck: Normal range of motion. No tracheal deviation present. Cardiovascular: Normal rate and regular rhythm. Pulmonary: Effort normal, no respiratory distress. Abd: Soft, nondistended, no rebound/guarding, no psoas or obturator signs, no tenderness at Mcberney's point, no Ugardado's sign. Pt does not present with an exam that would be consistent with an acute surgical abdomen at this time. Patient with bilateral hip tenderness but no flank tenderness per se. Musculoskeletal: Normal range of motion Neurologic: Alert and oriented to person, place and time. Skin: Lucky, warm and dry. Psychiatric: Normal mood and affect. Behavior is normal. Judgment and thought content normal. Nursing note and vital signs have been reviewed Diagnostics: CT scan of the abdomen pelvis reveals a markedly enlarged bladder measuring approximately 1100 mL. UA reveals WBCs and bacteria in urine but appears to be significantly less than the microscopic on his prior UA from 2 days ago. Therapeutics: Pyridium 200 mg p.o. Rocephin 1 g IV Fentanyl 100 mcg IV Zofran 4 mg IV Assessment and plan: This is a 65-year-old gentleman who presents ER today with urinary complaints. Patient here work is consistent with a urinary tract infection most likely secondary to urinary obstruction. Patient was given Rocephin [address] scan reveals a bladder that is approximately 1100 mL. Patient will have a Eaton catheter placed with a leg bag and will be instructed to follow-up with Dr. Rincon. Patient will be changed to Omnicef and urine culture will be ordered. Reassessment at the time of disposition demonstrates that the patient is in no acute distress. The patient has remained stable throughout the entire ED visit and is without objective evidence for acute process requiring urgent intervention or hospitalization. The patient is stable for discharge, counseling is provided as documented above, discussed symptomatic treatment and specific conditions for return. I have spoken with the patient/caregiver and discussed todays findings, in addition to providing specific details for the plan of care. Questions are answered and there is agreement with the plan. Definitive disposition and diagnosis as appropriate pending reevaluation and review of above. penisd Pain Score (Numeric/FACES): 5 - Related Data Allergies Allergy/AdvReac Type Severity Reaction Status Date / Time No Known Allergies Allergy Verified 06/20/20 01:19 Home Meds: Home Meds Aspirin 1 tab PO DAILY 06/18/20 [History] Clopidogrel Bisulfate [Plavix] 75 mg PO DAILY 06/18/20 [History] Furosemide 40 mg PO DAILY 06/18/20 [History] Iron 65 mg PO DAILY 06/18/20 [History] Nitroglycerin 1 tab PO ASDIRECTED PRN 06/18/20 [History] atorvaSTATin [Lipitor] 40 mg PO DAILY 06/18/20 [History] carvediloL [Carvedilol] 1 tab PO BID 06/18/20 [History] cephALEXin [Keflex] 500 mg PO Q6H 7 Days #28 cap 06/18/20 [Rx] Cefdinir [Omnicef] 300 mg PO BID #14 cap 06/20/20 [Rx] Past Medical History - Past Health History Medical/Surgical History: Denies Medical/Surgical History Cardiovascular History: Reports: Hypertension Respiratory History: Reports: COPD - Infectious Disease History Infectious Disease History: Reports: Chicken Pox, Measles, Mumps Other Infectious Disease History: unable to recall specific occurrences - Past Surgical History Cardiovascular Surgical History: Reports: Other (See Below) Other Cardiovascular Surgeries/Procedures: Femoral Artery- Fem Fem Other Musculoskeletal Surgeries/Procedures:: left wrist surgery Social & Family History - Family History Family Medical History: No Pertinent Family History - Tobacco Use Tobacco Use Status *Q: Never Tobacco User - Caffeine Use Caffeine Use: Reports: Coffee - Recreational Drug Use Recreational Drug Use: No ED ROS GENERAL - Review of Systems Review Of Systems: See Below ED EXAM, GENERAL - Physical Exam Exam: See Below Course - Vital Signs Last Recorded V/S: Last Vital Signs Temp 97 F 06/20/20 01:13 Pulse 62 06/20/20 02:17 Resp 17 06/20/20 01:13 BP 135/63 06/20/20 02:17 Pulse Ox 94 L 06/20/20 02:17 - Orders/Labs/Meds Orders: Active Orders 24 hr Category Date Time Status Eaton Catheter Insertion [Insert Urinary Catheter] [OM. Care 06/20/20 03:00 Ordered PC] Q24H Urinary Catheter Assessment [RC] ASDIRECTED Care 06/20/20 02:52 Active URINALYSIS W/MICROSCOPIC [UA W/MICROSCOPIC] [URIN] Stat Lab 06/20/20 02:51 Ordered Sodium Chloride 0.9% [Saline Flush] Med 06/20/20 01:14 Active 10 ml FLUSH ASDIRECTED PRN Sodium Chloride 0.9% [Saline Flush] Med 06/20/20 01:14 Active 2.5 ml FLUSH ASDIRECTED PRN Saline Lock Insert [OM.PC] Stat Oth 06/20/20 01:17 Ordered Medication Orders Sodium Chloride (Sodium Chloride 0.9% 10 Ml Syringe) 10 ml FLUSH ASDIRECTED PRN PRN Reason: Keep Vein Open Last Admin: 06/20/20 01:31 Dose: 10 ml Documented by: ALEENA Sodium Chloride (Sodium Chloride 0.9% 2.5 Ml Syringe) 2.5 ml FLUSH ASDIRECTED PRN PRN Reason: Keep Vein Open Last Admin: 06/20/20 01:31 Dose: 2.5 ml Documented by: ALEENA Labs: Laboratory Tests 06/20/20 06/20/20 06/20/20 Range/Units 01:26 01:26 01:28 WBC 11.91 H (4.0-11.0) K/uL RBC 4.25 L (4.50-5.90) M/uL Hgb 12.3 L (13.0-17.0) g/dL Hct 37.0 L (38.0-50.0) % MCV 87.1 (80.0-98.0) fL MCH 28.9 (27.0-32.0) pg MCHC 33.2 (31.0-37.0) g/dL RDW Std Deviation 46.5 (28.0-62.0) fl RDW Coeff of Catrachita 15 (11.0-15.0) % Plt Count 399 (150-400) K/uL MPV 9.50 (7.40-12.00) fL Neut % (Auto) 68.3 (48.0-80.0) % Lymph % (Auto) 23.0 (16.0-40.0) % Banner % (Auto) 5.8 (0.0-15.0) % Eos % (Auto) 2.7 (0.0-7.0) % Baso % (Auto) 0.2 (0.0-1.5) % Neut # (Auto) 8.1 H (1.4-5.7) K/uL Lymph # (Auto) 2.7 H (0.6-2.4) K/uL Banner # (Auto) 0.7 (0.0-0.8) K/uL Eos # (Auto) 0.3 (0.0-0.7) K/uL Baso # (Auto) 0.0 (0.0-0.1) K/uL Nucleated RBC % 0.0 /100WBC Nucleated RBCs # 0 K/uL Sodium 137 (136-148) mmol/L Potassium 3.7 (3.5-5.1) mmol/L Chloride 101 (98-107) mmol/L Carbon Dioxide 23.8 (21.0-32.0) mmol/L BUN 18 (7.0-18.0) mg/dL Creatinine 1.0 (0.8-1.3) mg/dL Est Cr Clr Drug Dosing 80.83 mL/min Estimated GFR (MDRD) > 60.0 ml/min Glucose 139 H (74-106) mg/dL Calcium 8.8 (8.5-10.1) mg/dL Total Bilirubin 0.3 (0.2-1.0) mg/dL AST 38 H (15-37) IU/L ALT 151 H (14-63) IU/L Alkaline Phosphatase 130 H (46-116) U/L Total Protein 7.2 (6.4-8.2) g/dL Albumin 2.7 L (3.4-5.0) g/dL Globulin 4.5 H (2.6-4.0) g/dL Albumin/Globulin Ratio 0.6 L (0.9-1.6) Urine Color YELLOW Urine Appearance SLT CLOUDY Urine pH 6.0 (5.0-8.0) Ur Specific [place] 1.025 (1.001-1.035) Urine Protein 30 H (NEGATIVE) mg/dL Urine Glucose (UA) NEGATIVE (NEGATIVE) mg/dL Urine Ketones NEGATIVE (NEGATIVE) mg/dL Urine Occult Blood TRACE-INTACT H (NEGATIVE) Urine Nitrite NEGATIVE (NEGATIVE) Urine Bilirubin NEGATIVE (NEGATIVE) Urine Urobilinogen 0.2 (<2.0) EU/dL Ur Leukocyte Esterase SMALL H (NEGATIVE) U Hyaline Cast (Auto) 0-2 (0-2/LPF) Urine RBC 0-3 (0-2/HPF) Urine WBC 30-40 (0-5/HPF) Ur Epithelial Cells FEW (NONE-FEW) Urine Bacteria FEW (NEGATIVE) Urine Mucus LIGHT (NONE-MOD) Urinalysis Comment Meds: Medications Generic Name Dose Route Start Last Admin Trade Name Freq PRN Reason Stop Dose Admin Sodium Chloride 10 ml 06/20/20 01:14 06/20/20 01:31 Sodium Chloride 0.9% 10 Ml Syringe FLUSH 10 ml ASDIRECTED PRN Administration Keep Vein Open Sodium Chloride 2.5 ml 06/20/20 01:14 06/20/20 01:31 Sodium Chloride 0.9% 2.5 Ml Syringe FLUSH 2.5 ml ASDIRECTED PRN Administration Keep Vein Open Discontinued Medications Generic Name Dose Route Start Last Admin Trade Name Gillian PRN Reason Stop Dose Admin Fentanyl 100 mcg 06/20/20 01:14 06/20/20 01:30 Fentanyl 50 Mcg/Ml Sdv IVPUSH 06/20/20 01:15 100 mcg ONETIME ONE Administration Sodium Chloride 1,000 mls @ 999 mls/hr 06/20/20 01:14 06/20/20 01:30 Normal Saline IV 06/20/20 02:14 999 mls/hr .Bolus ONE Administration Ceftriaxone Sodium/Dextrose 1 50 mls @ 100 mls/hr 06/20/20 01:14 06/20/20 01:31 gm/ Premix IV 06/20/20 01:43 100 mls/hr ONETIME ONE Administration Ondansetron HCl 4 mg 06/20/20 01:14 06/20/20 01:30 Ondansetron 4 Mg/2 Ml Sdv IVPUSH 06/20/20 01:15 4 mg ONETIME ONE Administration Phenazopyridine HCl 200 mg 06/20/20 02:23 Phenazopyridine 200 Mg Tab PO 06/20/20 02:24 ONETIME ONE Departure - Departure Time of Disposition: 02:57 Disposition: Home, Self-Care 01 Condition: Good Clinical Impression: UTI, Urinary tract infectious disease, Urinary outflow obstruction - Discharge Information Instructions: Indwelling Urinary Catheter Care, Adult, Urinary Tract Infection, Adult Referrals: Alexander Cortez MD [Primary Care Provider] - Forms: ED Department Discharge Additional Instructions: You have been seen and evaluated the ER today secondary to urinary discomfort. The CT scan that we obtained in the ER reveals that you have a markedly enlarged urinary bladder of approximately 1100 mL. Your urine still reveals that you have a slight infection but appears to be significantly improving from your prior urinalysis. You will be changed to a new antibiotic called Omnicef 300 mg twice a day. You were given a dose of IV Rocephin are ready here in the ED tonight. Given the enlargement of your bladder it is most likely secondary to an enlarged prostate resulting in obstruction of your urine. We will place a Eaton catheter and instruction on the use of a leg bag to use. Please give Dr. Rincon's office a call in the morning so that you can be followed up by urology. [facility] - Urology [address] [place] [id number] The following information is given to patients seen in the emergency department who are being discharged to home. This information is to outline your options for follow-up care. We provide all patients seen in our emergency department with a follow-up referral. The need for follow-up, as well as the timing and circumstances, are variable depending upon the specifics of your emergency department visit. If you don't have a primary care physician on staff, we will provide you with a referral. We always advise you to contact your personal physician following an emergency department visit to inform them of the circumstance of the visit and for follow-up with them and/or the need for any referrals to a consulting specialist. The emergency department will also refer you to a specialist when appropriate. This referral assures that you have the opportunity for follow-up care with a specialist. All of these measure are taken in an effort to provide you with optimal care, which includes your follow-up. Under all circumstances we always encourage you to contact your private physician who remains a resource for coordinating your care. When calling for follow-up care, please make the office aware that this follow-up is from your recent emergency room visit. If for any reason you are refused follow-up, please contact the [facility] Emergency Department at and asked to speak to the emergency department charge nurse. [facility] - Primary Care [address] [place] [id number] [id number] Sepsis Event Note (ED) - Evaluation Sepsis Screening Result: No Definite Risk - Focused Exam Vital Signs: Vital Signs Temp Pulse Resp BP Pulse Ox 06/20/20 02:17 62 135/63 94 L 06/20/20 01:13 97 F 69 17 115/79 97 - My Orders Last 24 Hours: My Active Orders 06/20/20 01:14 Sodium Chloride 0.9% [Saline Flush] 10 ml FLUSH ASDIRECTED PRN Sodium Chloride 0.9% [Saline Flush] 2.5 ml FLUSH ASDIRECTED PRN 06/20/20 01:17 Saline Lock Insert [OM.PC] Stat 06/20/20 02:51 URINALYSIS W/MICROSCOPIC [UA W/MICROSCOPIC] [URIN] Stat 06/20/20 02:52 Urinary Catheter Assessment [RC] ASDIRECTED 06/20/20 03:00 Eaton Catheter Insertion [Insert Urinary Catheter] [OM.PC] Q24H - Assessment/Plan Last 24 Hours: My Active Orders 06/20/20 01:14 Sodium Chloride 0.9% [Saline Flush] 10 ml FLUSH ASDIRECTED PRN Sodium Chloride 0.9% [Saline Flush] 2.5 ml FLUSH ASDIRECTED PRN 06/20/20 01:17 Saline Lock Insert [OM.PC] Stat 06/20/20 02:51 URINALYSIS W/MICROSCOPIC [UA W/MICROSCOPIC] [URIN] Stat 06/20/20 02:52 Urinary Catheter Assessment [RC] ASDIRECTED 06/20/20 03:00 Eaton Catheter Insertion [Insert Urinary Catheter] [OM.PC] Q24H
[2020-06-20] MEDS ORDERED: Lidocaine 2% Viscous Solution 100 ML Bottle PO ONE (02:57)
[2020-06-20] MEDS ORDERED: Lidocaine 2% Viscous Solution 15 ML Cup ONE (02:59)
[2020-06-20] MEDS ORDERED: Lidocaine 2% Viscous Solution 15 ML Cup PO ONE (02:59)
== END 2020-06-20 03:50 | disposition home or self-care (01) ==
LOC: MW.ED 01:00
DX: N39.0 Urinary tract infection, site not specified (principal); N13.9 Obstructive and reflux uropathy, unspecified; I10 Essential (primary) hypertension; E11.9 Type 2 diabetes mellitus without complications; J44.9 Chronic obstructive pulmonary disease, unspecified; I25.2 Old myocardial infarction; Z79.02 Long term (current) use of antithrombotics/antiplatelets; Z79.82 Long term (current) use of aspirin; Z79.899 Other long term (current) drug therapy
CPT/HCPCS: 36415; 51702; 74176; 80053; 81001; 85025; 96365; 96375; 99284; A9270; J0696; J2405; J3010; J7030; 99283

== ENCOUNTER 2020-06-29 14:42 | Emergency (ER) | payer BC ==
--- NOTE | 2020-06-29 17:24 | EDM.PDOC ---
ED HPI GENERAL MEDICAL PROBLEM - General Chief Complaint: Genitourinary Problem Stated Complaint: CATHETER ISSUE Time Seen by Provider: 06/29/20 14:42 Source of Information: Reports: Patient History Limitations: Reports: No Limitations - History of Present Illness INITIAL COMMENTS - FREE TEXT/NARRATIVE: HISTORY AND PHYSICAL: History of present illness: She is a 65-year-old male who presents to the ED today with concern of complications of his indwelling urinary catheter. Patient states that he has issues with his prostate currently and is following with the urologist, Dr. Rincon. Patient states that he just got a new catheter put in yesterday at Dr. Rincon's clinic. Patient states that he transferred over to the leg bag today so that he could go to work. Patient states that his leg bag started to fall while at work and pulled on the catheter. Patient states that he felt pain when this happened and states that he had some blood passed into his urine initially and now has not passed urine since this. Patient came to the ED to figure out what is the issue with his catheter. Patient denies any other symptoms or concerns. Patient denies fever, chills, chest pain, shortness of breath, or cough. Denies headache, neck stiff ness, change in vision, syncope, or near syncope. Denies nausea, vomiting, abdominal pain, diarrhea, constipation, or dysuria. Has not noted any blood in stool. Patient has been eating and drinking appropriately. Review of systems: As per history of present illness and below otherwise all systems reviewed and negative. Past medical history: As per history of present illness and as reviewed below otherwise noncontributory. Surgical history: As per history of present illness and as reviewed below otherwise noncontributory. Social history: See social history for further information Family history: As per history of present illness and as reviewed below otherwise noncontributory. Physical exam: General: Patient is alert, oriented, and in no acute distress. Patient sitting comfortably on exam table. Vitals stable and reviewed by me. HEENT: Atraumatic, normocephalic, pupils equal and reactive bilaterally, negative for conjunctival pallor or scleral icterus, mucous membranes moist, TMs normal bilaterally, throat clear, neck supple, nontender, trachea midline. No drooling or trismus noted. No meningeal signs. No hot potato voice noted. Lungs: Clear to auscultation, breath sounds equal bilaterally, chest nontender. Heart: S1S2, regular rate and rhythm without overt murmur Abdomen: Soft, nondistended, nontender. Negative for masses or hepatosplenomegaly. Negative for costovertebral tenderness. Pelvis: Stable nontender. Genitourinary: Deferred. Rectal: Deferred. Skin: Intact, warm, dry. No lesions or rashes noted. Extremities: Atraumatic, negative for cords or calf pain. Neurovascular unremarkable. Neuro: Awake, alert, oriented. Cranial nerves II through XII unremarkable. Cerebellum unremarkable. Motor and sensory unremarkable throughout. Exam nonfocal. Notes: On arrival to the ED, patient is vitally stable and well-appearing on exam. His Eaton catheter is not draining any urine at this time. Will flush the catheter and try to reposition it. Nursing staff was able to reposition Eaton catheter with 550 cc output of urine. Patient expresses resolution and improvement of his symptoms. I suspect that patient dislodged the indwelling urinary catheter on this got pulled on at work. Signs and symptoms that were prompt return to the ED thoroughly discussed with patient. Discussed importance for follow-up with his primary care provider and the urologist. Voices understanding and is agreeable to plan of care. Denies any further questions or concerns at this time. Diagnostics: UA w culture Therapeutics: Catheter care done by nursing staff Prescription: None Impression: Complication due to indwelling urinary catheter Plan: 1. Follow-up with your primary care provider and the urologist as discussed. Return to the ED as needed and as discussed. Definitive disposition and diagnosis as appropriate pending reevaluation and review of above. penis Pain Score (Numeric/FACES): 5 - Related Data Allergies Allergy/AdvReac Type Severity Reaction Status Date / Time No Known Allergies Allergy Verified 06/29/20 15:23 Home Meds: Home Meds Aspirin 1 tab PO DAILY 06/18/20 [History] Clopidogrel Bisulfate [Plavix] 75 mg PO DAILY 06/18/20 [History] Furosemide 40 mg PO DAILY 06/18/20 [History] Iron 65 mg PO DAILY 06/18/20 [History] Nitroglycerin 1 tab PO ASDIRECTED PRN 06/18/20 [History] atorvaSTATin [Lipitor] 40 mg PO DAILY 06/18/20 [History] carvediloL [Carvedilol] 1 tab PO BID 06/18/20 [History] Past Medical History - Past Health History Medical/Surgical History: Denies Medical/Surgical History Cardiovascular History: Reports: Hypertension Respiratory History: Reports: COPD - Infectious Disease History Infectious Disease History: Reports: Chicken Pox, Measles, Mumps, Novel Coronavirus Other Infectious Disease History: unable to recall specific occurrences - Past Surgical History Cardiovascular Surgical History: Reports: Other (See Below) Other Cardiovascular Surgeries/Procedures: Femoral Artery- Fem Fem Other Musculoskeletal Surgeries/Procedures:: left wrist surgery Social & Family History - Family History Family Medical History: No Pertinent Family History - Caffeine Use Caffeine Use: Reports: None - Recreational Drug Use Recreational Drug Use: No ED ROS GENERAL - Review of Systems Review Of Systems: Comprehensive ROS is negative, except as noted in HPI. ED EXAM, GENERAL - Physical Exam Exam: See Below (see dictation) Course - Vital Signs Last Recorded V/S: Last Vital Signs Temp 99.2 F 06/29/20 15:16 Pulse 71 06/29/20 15:16 Resp 18 06/29/20 15:16 BP 119/71 06/29/20 15:16 Pulse Ox 94 L 06/29/20 15:16 - Orders/Labs/Meds Orders: Active Orders 24 hr Category Date Time Status CULTURE URINE [RM] Stat Lab 06/29/20 17:00 Received Labs: Laboratory Tests 06/29/20 Range/Units 17:00 Urine Color YELLOW Urine Appearance CLEAR Urine pH 7.0 (5.0-8.0) Ur Specific [place] 1.010 (1.001-1.035) Urine Protein NEGATIVE (NEGATIVE) mg/dL Urine Glucose (UA) NEGATIVE (NEGATIVE) mg/dL Urine Ketones NEGATIVE (NEGATIVE) mg/dL Urine Occult Blood LARGE H (NEGATIVE) Urine Nitrite NEGATIVE (NEGATIVE) Urine Bilirubin NEGATIVE (NEGATIVE) Urine Urobilinogen 0.2 (<2.0) EU/dL Ur Leukocyte Esterase TRACE H (NEGATIVE) Urine RBC 0-5 (0-2/HPF) Urine WBC 1-5 (0-5/HPF) Ur Epithelial Cells FEW (NONE-FEW) Amorphous Sediment FEW (NEGATIVE) Urine Bacteria FEW (NEGATIVE) Departure - Departure Time of Disposition: 17:23 Disposition: Home, Self-Care 01 Clinical Impression: Complication of indwelling urinary catheter Qualifiers: Device complication type: mechanical Mechanical complication type: displacement Indwelling urinary catheter type: other indwelling urinary catheter type Encounter type: initial encounter Qualified Code(s): T83.028A - Displacement of other urinary catheter, initial encounter - Discharge Information Referrals: PCP,None [Primary Care Provider] - Forms: ED Department Discharge Additional Instructions: The following information is given to patients seen in the emergency department who are being discharged to home. This information is to outline your options for follow-up care. We provide all patients seen in our emergency department with a follow-up referral. The need for follow-up, as well as the timing and circumstances, are variable depending upon the specifics of your emergency department visit. If you don't have a primary care physician on staff, we will provide you with a referral. We always advise you to contact your personal physician following an emergency department visit to inform them of the circumstance of the visit and for follow-up with them and/or the need for any referrals to a consulting specialist. The emergency department will also refer you to a specialist when appropriate. This referral assures that you have the opportunity for follow-up care with a specialist. All of these measure are taken in an effort to provide you with optimal care, which includes your follow-up. Under all circumstances we always encourage you to contact your private physician who remains a resource for coordinating your care. When calling for follow-up care, please make the office aware that this follow-up is from your recent emergency room visit. If for any reason you are refused follow-up, please contact the [facility] Emergency Department at and asked to speak to the emergency department charge nurse. [facility] Primary Care [address] [place] [address] [id number] [address] [address] [facility] - Urology [address] [place] [id number] 1. Follow-up with your primary care provider and the urologist as discussed. Return to the ED as needed and as discussed. Sepsis Event Note (ED) - Evaluation Sepsis Screening Result: No Definite Risk - Focused Exam Vital Signs: Vital Signs Temp Pulse Resp BP Pulse Ox 06/29/20 15:16 99.2 F 71 18 119/71 94 L - My Orders Last 24 Hours: My Active Orders 06/29/20 17:00 CULTURE URINE [RM] Stat - Assessment/Plan Last 24 Hours: My Active Orders 06/29/20 17:00 CULTURE URINE [RM] Stat
== END 2020-06-29 17:40 | disposition home or self-care (01) ==
LOC: MW.ED 14:42
DX: T83.021A Displacement of indwelling urethral catheter, initial encounter (principal); I10 Essential (primary) hypertension; J44.9 Chronic obstructive pulmonary disease, unspecified; Z79.82 Long term (current) use of aspirin; Z79.02 Long term (current) use of antithrombotics/antiplatelets; Z79.899 Other long term (current) drug therapy
CPT/HCPCS: 81001; 87086; 99283

== ENCOUNTER 2021-08-25 13:27 | Emergency (ER) | payer MEDICARE, BC ==
[2021-08-25] MEDS ORDERED: Lidocaine 1% 5 ML VIAL INJECT ONE (14:07)
[2021-08-25] MEDS ORDERED: Diphtheria,Pertussis(Acell),Tetanus Vaccine 0.5 ML Syringe IM ONE (15:33)
== END 2021-08-25 15:30 | disposition home or self-care (01) ==
LOC: MW.ED 13:27
DX: S71.111A Laceration without foreign body, right thigh, initial encounter (principal); S61.401A Unspecified open wound of right hand, initial encounter; E78.00 Pure hypercholesterolemia, unspecified; J44.9 Chronic obstructive pulmonary disease, unspecified; I10 Essential (primary) hypertension; Z86.16 Personal history of COVID-19; Z79.899 Other long term (current) drug therapy; Z23 Encounter for immunization; Z79.82 Long term (current) use of aspirin; W26.8XXA Contact with other sharp object(s), not elsewhere classified, initial encounter
CPT/HCPCS: 12002; 90471; 90715; 99282; 99282-25

== ENCOUNTER 2023-03-26 15:58 | Emergency (ER) | payer MEDICARE, BC ==
[2023-03-26] MEDS ORDERED: Sulfamethoxazole/Trimethoprim 800-160 MG Tab PO STA (19:47)
[2023-03-26] MEDS ORDERED: Cephalexin 500 MG Cap PO STA (19:47)
== END 2023-03-26 21:00 | disposition left against medical advice (07) ==
LOC: MW.ED 15:58
DX: L03.011 Cellulitis of right finger (principal); I10 Essential (primary) hypertension; J44.9 Chronic obstructive pulmonary disease, unspecified; Z86.16 Personal history of COVID-19; Z79.899 Other long term (current) drug therapy; Z87.891 Personal history of nicotine dependence
CPT/HCPCS: 73130; 99283; A9270

== ENCOUNTER 2024-11-30 06:27 | Day surgery (SDC) | payer MEDICARE, BC ==
[~2024-11-30 06:27] MED LIST: Sodium Chloride 0.9% 10 ML Syringe FLUSH PRN; Sodium Chloride 0.9% 2.5 ML Syringe FLUSH PRN; ceFAZolin 2 GM in Water For Injection, Sterile 20 ML IVPUSH ONE
[2024-11-30] MEDS: Lactated Ringers 1,000 ML IV SCH (07:00)
[2024-11-30] MEDS ORDERED: Ketamine HCL/NACL, ISO-OSM 50 MG/5 ML Syringe ONE ×3 (07:38→08:25)
[2024-11-30] MEDS ORDERED: fentaNYL 100 MCG/2 ML SDV ONE (07:38)
[2024-11-30] MEDS ORDERED: Propofol 200 MG/20 ML SDV ONE (07:38)
[2024-11-30] MEDS ORDERED: dexmedeTOMIDine HCl 200 MCG/2 ML SDV ONE (07:40)
[2024-11-30] MEDS ORDERED: Midazolam 1 MG/ML 2 ML SDV ONE (07:43)
[2024-11-30] MEDS: Albuterol 0.083% 2.5 MG/3 ML Neb Soln NEB ONE (07:54)
[2024-11-30] MEDS ORDERED: fentaNYL 50 MCG/ML SDV IVPUSH PRN (08:00)
[2024-11-30] MEDS ORDERED: Ondansetron 4 MG/2 ML SDV IVPUSH PRN (08:00)
[2024-11-30] MEDS ORDERED: Naloxone 0.4 MG/ML SDV IVPUSH PRN (08:00)
[2024-11-30] MEDS ORDERED: Albuterol 0.083% 2.5 MG/3 ML Neb Soln NEB PRN (08:00)
[2024-11-30] MEDS ORDERED: Ondansetron 4 MG/2 ML SDV ONE (08:37)
== END 2024-11-30 10:18 | disposition home or self-care (01) ==
LOC: MW.SDS 06:27
PROVIDERS: ATTEND Surgery
DX: C34.90 Malignant neoplasm of unspecified part of unspecified bronchus or lung (principal); I25.10 Atherosclerotic heart disease of native coronary artery without angina pectoris; E78.00 Pure hypercholesterolemia, unspecified; E66.9 Obesity, unspecified; I10 Essential (primary) hypertension; Z68.36 Body mass index [BMI] 36.0-36.9, adult; Z79.82 Long term (current) use of aspirin; Z87.891 Personal history of nicotine dependence; Z79.899 Other long term (current) drug therapy
CPT/HCPCS: 36561; 71045; 76000; 94640; A9270; J0665; J1642; J2003; J2250; J2405; J2704; J3010; J7120; 00532; C1788; J3490